=== PATIENT | male | born 1975 | race Caucasian/White ===

== ENCOUNTER 2017-02-28 03:22 | Emergency (ER) | payer SELFPAY ==
[~2017-02-28 03:22] MED LIST: MOTR200T PO
[2017-02-28 03:34] VITALS: BP 136/88; PULSE 120; RESP 22; TEMP 99.2; O2SAT 97
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
[2017-02-28 06:03] VITALS: BP 126/70; PULSE 99; RESP 20; O2SAT 100
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
[2017-02-28] MEDS ORDERED: LIDOCAINE HCL 1% PF 30 ML VIAL ONE (07:24)
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
== END 2017-02-28 08:45 | disposition home or self-care (01) ==
LOC: NEPC 03:22
DX: S09.90XA Unspecified injury of head, initial encounter (principal); S01.01XA Laceration without foreign body of scalp, initial encounter; S81.812A Laceration without foreign body, left lower leg, initial encounter; Z72.0 Tobacco use; Y04.2XXA Assault by strike against or bumped into by another person, initial encounter
CPT/HCPCS: 12002; 70450; 70486; 72125

== ENCOUNTER 2017-03-31 15:00 | Inpatient (IN) | payer SELFPAY ==
[~2017-03-31] VITALS: Ht 170.2 cm; Wt 82.3 kg
[2017-03-31] MEDS ORDERED: IOHEXOL 350 MG/ML 10 ML VIAL (for RAD DIAG) IVCONTRAST ONE (15:01)
[2017-03-31 15:08] VITALS: BP 112/74; PULSE 99; RESP 18; TEMP 97.5; O2SAT 97
--- NOTE | 2017-03-31 15:09 | PD ---
Physical Exam Date Seen by Provider: Mar 31, 2017 Time Seen by Provider: 15:07 Narrative 41-year-old white male presents to emergency department by EMS for evaluation of abdominal pain. Patient was in his normal state of health earlier today. He had gone to court today and developed abdominal discomfort. He states that the pain came so severe he fell to the ground. No fever chills. No nausea vomiting. Vital signs reviewed. Pt waiting for bed placement. [facility] Medical Record Reviewed: No Supervised Visit with AREN: Joseph Alvarez Mar 31, 2017 15:09
--- NOTE | 2017-03-31 15:09 | PD ---
Physical Exam Date Seen by Provider: Mar 31, 2017 Time Seen by Provider: 15:07 Narrative 41-year-old white male presents to emergency department by EMS for evaluation of abdominal pain. Patient was in his normal state of health earlier today. He had gone to court today and developed abdominal discomfort. He states that the pain came so severe he fell to the ground. No fever chills. No nausea vomiting. Vital signs reviewed. Pt waiting for bed placement. [facility] Medical Record Reviewed: No Supervised Visit with AREN: Joseph Alvarez Mar 31, 2017 15:09
--- NOTE | 2017-03-31 15:09 | PD ---
Physical Exam Date Seen by Provider: Mar 31, 2017 Time Seen by Provider: 15:07 Narrative 41-year-old white male presents to emergency department by EMS for evaluation of abdominal pain. Patient was in his normal state of health earlier today. He had gone to court today and developed abdominal discomfort. He states that the pain came so severe he fell to the ground. No fever chills. No nausea vomiting. Vital signs reviewed. Pt waiting for bed placement. [facility] Medical Record Reviewed: No Supervised Visit with AREN: Joseph Alvarez Mar 31, 2017 15:09
--- NOTE | 2017-03-31 16:32 | PD ---
HPI Chief Complaint: Abdominal Pain Time Seen by Provider: 16:10 Travel History International Travel<30 days: No Contact w/Intl Traveler<30days: No Traveled to known affect area: No History of Present Illness HPI Patient is a 41-year-old male who presents to emergency with complaints of abdominal pain. Patient reports that he felt nauseous this morning, but had to go to court. Reports that after court, he was not feeling any better. Reports diffuse abdominal pain with nausea and no vomiting. Denies diarrhea or constipation. Denies fever/chills. Patient denies dysuria/urgency/freq. PFSH Past Medical History Medical History: Denies Significant Hx Influenza Vaccination: No Past Surgical History Surgical History: No Previous Surgery Social History Alcohol Use: Yes (SOCIALLY PER PT) Tobacco Use: Yes (1/2 PPD) Substance Use: No Allergies-Medications (Allergen,Severity, Reaction): Coded Allergies: Penicillins (Verified Allergy, Severe, NAUSEA/VOMITING, 03/31/17) Reported Meds & Prescriptions Reported Meds & Active Scripts Active No Active Prescriptions or Reported Medications Review of Systems General / Constitutional: No: Fever, Chills Eyes: No: Visual changes HENT: No: Headaches Cardiovascular: No: Chest Pain or Discomfort Respiratory: No: Shortness of Breath Gastrointestinal: Positive: Nausea, Abdominal Pain, No: Vomiting, Diarrhea Genitourinary: No: Dysuria Musculoskeletal: No: Pain Skin: No Rash Neurologic: No: Weakness Psychiatric: No: Depression Endocrine: No: Polydipsia Hematologic/Lymphatic: No: Easy Bruising Physical Exam Narrative GENERAL: Moderate distress SKIN: Focused skin assessment warm/dry. HEAD: Atraumatic. Normocephalic. EYES: Pupils equal and round. No scleral icterus. No injection or drainage. ENT: No nasal bleeding or discharge. Mucous membranes pink and moist. NECK: Trachea midline. No JVD. CARDIOVASCULAR: Regular rate and rhythm. No murmur appreciated. RESPIRATORY: No accessory muscle use. Clear to auscultation. Breath sounds equal bilaterally. GASTROINTESTINAL: Abdomen soft, diffusely tender, nondistended. Hepatic and splenic margins not palpable. MUSCULOSKELETAL: No obvious deformities. No clubbing. No cyanosis. No edema. NEUROLOGICAL: Awake and alert. No obvious cranial nerve deficits. Motor grossly within normal limits. Normal speech. PSYCHIATRIC: Appropriate mood and affect; insight and judgment normal. Data Data Last Documented VS Vital Signs Date Time Temp Pulse Resp B/P (MAP) Pulse Ox O2 Delivery O2 Flow Rate FiO2 03/31/17 15:08 97.5 99 18 112/74 (87) 97 Room Air MDM Medical Decision Making Medical Screen Exam Complete: Yes Emergency Medical Condition: Yes Interpretation(s) Vital Signs Date Time Temp Pulse Resp B/P (MAP) Pulse Ox O2 Delivery O2 Flow Rate FiO2 03/31/17 15:08 97.5 99 18 112/74 (87) 97 Room Air Differential Diagnosis Gastroenteritis, gastritis, cholecystitis, appendicitis, anxiety reaction Narrative Course 41 year old male who presents to ER with c/o of diffuse abdominal pain with associated nausea. During the course of the patients emergency department visit, the patients history, examination, and differential diagnosis were reviewed with the patient. The patient was placed on a laboratory monitor with oximetry and frequent blood pressure monitoring. The patient had 20 gauge IV access obtained and blood work sent for analysis. Patient was signed out to oncoming physician at change of shift. Patient pending labs as well as ct study as well as re-evaluation. Scripts No Active Prescriptions or Reported Meds Morena Mata DO Mar 31, 2017 16:32
[2017-03-31] MEDS ORDERED: SODIUM CHLOR 0.9% 1000 ML INJ 1,000 ML IV SCH (16:44)
[2017-03-31] MEDS ORDERED: ONDANSETRON HCL 4 MG/2 ML VIAL IVP ONE (16:45)
[2017-03-31] MEDS ORDERED: SODIUM CHLORIDE 0.9% FLUSH 10 ML FLUSH IV FLUSH PRN (16:45)
[2017-03-31 17:12] LABS: AUTOMATED NEUTROPHIL # 13.5 TH/MM3 (1.8-7.7); BASOPHIL % 0.3 % (0.0-2.0); HEMOGLOBIN 15.1 GM/DL (13.0-17.0); LYMPH % 3.6 % (9.0-44.0); LYMPHOCYTE # 0.5 TH/MM3 (1.0-4.8); MEAN CELL VOLUME 89.3 FL (80.0-100.0); MEAN CORPUSCULAR HEMOGLOBIN 30.7 PG (27.0-34.0); MEAN CORPUSCULAR HGB CONC 34.4 % (32.0-36.0); MEAN PLATELET VOLUME 6.3 FL (7.0-11.0); MONO % 3.6 % (0.0-8.0); MONOCYTE # 0.5 TH/MM3 (0-0.9); NEUT % 92.5 % (16.0-70.0); PLATELET COUNT 299 TH/MM3 (150-450); RED BLOOD COUNT 4.93 MIL/MM3 (4.50-5.90); RED CELL DISTRIBUTION WIDTH 14.1 % (11.6-17.2); WHITE BLOOD COUNT 14.5 TH/MM3 (4.0-11.0)
[2017-03-31 17:23] LABS: INTERNATIONAL NORMALIZED RATIO 0.9 RATIO; PROTHROMBIN TIME - PATIENT 10.4 SEC (9.8-11.6)
[2017-03-31 17:59] LABS: ALBUMIN 3.7 GM/DL (3.4-5.0); ALT (GPT) 21 U/L (12-78); AST (GOT) 13 U/L (15-37); BICARBONATE 26.2 MEQ/L (21.0-32.0); BLOOD UREA NITROGEN 15 MG/DL (7-18); CALCIUM 8.6 MG/DL (8.5-10.1); CHLORIDE 102 MEQ/L (98-107); CREATININE 1.08 MG/DL (0.60-1.30); GLOMERULAR FILTRATION RATE 76 ML/MIN (>89); GLUCOSE,RANDOM 113 MG/DL (74-106); SODIUM (NA) 136 MEQ/L (136-145)
[2017-03-31 18:02] LABS: ALKALINE PHOSPHATASE 66 U/L (45-117); TOTAL BILIRUBIN ADULT 0.4 MG/DL (0.2-1.0); TOTAL PROTEIN 7.1 GM/DL (6.4-8.2)
[2017-03-31 18:33] LABS: BILIRUBIN, URINE NEG (NEG); BLOOD, URINE NEG (NEG); GLUCOSE,URINE NEG (NEG); KETONE, URINE NEG (NEG); NITRITE,URINE NEG (NEG); URINE COLOR YELLOW (YELLW/STRAW); URINE LEUKOCYTE ESTERASE NEG (NEG)
--- NOTE | 2017-03-31 18:45 | RADRPT ---
EXAM DATE/TIME: 03/31/2017 18:14 [facility] COMPARISON: No previous studies available for comparison. INDICATIONS : Diffuse abdomen pain IV CONTRAST: 76 cc Omnipaque 350 (iohexol) IV ORAL CONTRAST: No oral contrast ingested. RADIATION DOSE: 6.64 CTDIvol (mGy) MEDICAL HISTORY : None SURGICAL HISTORY : None. ENCOUNTER: Initial ACUITY: 1 day PAIN SCALE: 8/10 LOCATION: Abdomen TECHNIQUE: Volumetric scanning of the abdomen and pelvis was performed. Using automated exposure control and ad justment of the mA and/or kV according to patient size, radiation dose was kept as low as reasonably achievable to obtain optimal diagnostic quality images. DICOM format image data is available electro nically for review and comparison. FINDINGS: LOWER LUNGS: The visualized lower lungs are clear. LIVER: Homogeneous density without lesion. There is no dilation of the biliary tree. No calcified gallston es. SPLEEN: Normal size without lesion. PANCREAS: Within normal limits. KIDNEYS: Normal in size and shape. There is no mass, stone or hydronephrosis. ADRENAL GLANDS: Within normal limits. VASCULAR: There is no aortic aneurysm. BOWEL/MESENTERY: No oral contrast was given limiting the sensitivity the exam. There is apparent mild inflammatory naun nge in the pelvis with wispy soft tissue densities and small amount of fluid present. This is best se en on axial image #63. There is apparent tubular structure in the right lower quadrant which appears to connect to the cecum. This is ill-defined and measures up to approximately 1.3 cm in diameter. Thi s is most consistent with an abnormal appendix. There is no appendicolith identified. dilatation. The re is no free intraperitoneal air. ABDOMINAL WALL: Within normal limits. RETROPERITONEUM: There is no lymphadenopathy. BLADDER: No wall thickening or mass. REPRODUCTIVE: Within normal limits. INGUINAL: There is no lymphadenopathy or hernia. MUSCULOSKELETAL: Within normal limits for patient age. CONCLUSION: Findings most characteristic of early appendicitis. James Jones MD on March 31, 2017 at 18:37 Board Certified Radiologist. This report was verified electronically.
--- NOTE | 2017-03-31 18:52 | PD ---
Physical Exam Narrative GENERAL: SKIN: Warm and dry. HEAD: Atraumatic. Normocephalic. EYES: Pupils equal and round. No scleral icterus. No injection or drainage. ENT: No nasal bleeding or discharge. Mucous membranes pink and moist. NECK: Trachea midline. No JVD. CARDIOVASCULAR: Regular rate and rhythm. RESPIRATORY: No accessory muscle use. Clear to auscultation. Breath sounds equal bilaterally. GASTROINTESTINAL: Abdomen soft, mild rlq ttp, nondistended. MUSCULOSKELETAL: Extremities without clubbing, cyanosis, or edema. No obvious deformities. NEUROLOGICAL: Awake and alert. No obvious cranial nerve deficits. Motor grossly within normal limits. Five out of 5 muscle strength in the arms and legs. Normal speech. PSYCHIATRIC: Appropriate mood and affect; insight and judgment normal. Data Data Last Documented VS Vital Signs Date Time Temp Pulse Resp B/P (MAP) Pulse Ox O2 Delivery O2 Flow Rate FiO2 03/31/17 19:10 100.3 109 16 123/64 (83) 99 Room Air Orders Orders Complete Blood Count With Diff (03/31/17 16:44) Comprehensive Metabolic Panel (03/31/17 16:44) Prothrombin Time / Inr (Pt) (03/31/17 16:44) Act Partial Throm Time (Ptt) (03/31/17 16:44) Urinalysis - C+S If Indicated (03/31/17 16:44) Ct Abd/Pel W Iv Contrast(Rout) (03/31/17 16:44) Iv Access Insert/Monitor (03/31/17 16:44) Ecg Monitoring (03/31/17 16:44) NPO (03/31/17 16:44) Ondansetron Inj (Zofran Inj) (03/31/17 16:45) Sodium Chlor 0.9% 1000 Ml Inj (Ns 1000 M (03/31/17 16:44) Sodium Chloride 0.9% Flush (Ns Flush) (03/31/17 16:45) Iohexol 350 Inj (Omnipaque 350 Inj) (03/31/17 15:01) Levofloxacin 500 Mg Premix Inj (Levaquin (03/31/17 19:00) Admit Order (Ed Use Only) (03/31/17 19:17) Labs Laboratory Tests Test 03/31/17 16:50 10/31/17 18:10 White Blood Count 14.5 TH/MM3 Red Blood Count 4.93 MIL/MM3 Hemoglobin 15.1 GM/DL Hematocrit 44.0 % Mean Corpuscular Volume 89.3 FL Mean Corpuscular Hemoglobin 30.7 PG Mean Corpuscular Hemoglobin Concent 34.4 % Red Cell Distribution Width 14.1 % Platelet Count 299 TH/MM3 Mean Platelet Volume 6.3 FL Neutrophils (%) (Auto) 92.5 % Lymphocytes (%) (Auto) 3.6 % Monocytes (%) (Auto) 3.6 % Eosinophils (%) (Auto) 0.0 % Basophils (%) (Auto) 0.3 % Neutrophils # (Auto) 13.5 TH/MM3 Lymphocytes # (Auto) 0.5 TH/MM3 Monocytes # (Auto) 0.5 TH/MM3 Eosinophils # (Auto) 0.0 TH/MM3 Basophils # (Auto) 0.0 TH/MM3 CBC Comment DIFF FINAL Differential Comment Prothrombin Time 10.4 SEC Prothromb Time International Ratio 0.9 RATIO Activated Partial Thromboplast Time 24.9 SEC Blood Urea Nitrogen 15 MG/DL Creatinine 1.08 MG/DL Random Glucose 113 MG/DL Total Protein 7.1 GM/DL Albumin 3.7 GM/DL Calcium Level 8.6 MG/DL Alkaline Phosphatase 66 U/L Aspartate Amino Transf (AST/SGOT) 13 U/L Alanine Aminotransferase (ALT/SGPT) 21 U/L Total Bilirubin 0.4 MG/DL Sodium Level 136 MEQ/L Potassium Level 4.1 MEQ/L Chloride Level 102 MEQ/L Carbon Dioxide Level 26.2 MEQ/L Anion Gap 8 MEQ/L Estimat Glomerular Filtration Rate 76 ML/MIN Urine Color YELLOW Urine Turbidity CLEAR Urine pH 6.0 Urine Specific [place] 1.020 Urine Protein NEG mg/dL Urine Glucose (UA) NEG mg/dL Urine Ketones NEG mg/dL Urine Occult Blood NEG Urine Nitrite NEG Urine Bilirubin NEG Urine Urobilinogen LESS THAN 2.0 MG/DL Urine Leukocyte Esterase NEG Urine RBC LESS THAN 1 /hpf Urine WBC 1 /hpf Microscopic Urinalysis Comment CULT NOT INDICATED [facility] Medical Record Reviewed: Yes Supervised Visit with AREN: No Narrative Course 15k wbc and ct showed early appy, pt given levaquin and kept npo Physician Communication Physician Communication dr hendrix made aware at 1910 while he was in the OR, PLAN TO OPERATE BENJIE, AT THIS TIME HAS ANOTHER APPY CASE Diagnosis Primary Impression: Acute appendicitis Qualified Codes: K35.80 - Unspecified acute appendicitis Admitting Information Admitting Physician Requests: Admit Scripts No Active Prescriptions or Reported Meds Dirk Sanchez MD Mar 31, 2017 18:52
[2017-03-31] MEDS ORDERED: LEVOFLOXACIN 500 MG PREMIX INJ 100 ML IV ONE (19:00)
[2017-03-31 19:10] VITALS: BP 123/64; PULSE 109; RESP 16; TEMP 100.3; O2SAT 99
[2017-03-31] MEDS ORDERED: METRONIDAZOLE 500 MG/100 ML ISONTONIC SOLN IV ONE (20:45)
[2017-03-31] MEDS ORDERED: BUPIVACAINE/EPINEPHRINE 0.5% 50 ML VIAL ONE (21:13)
[2017-03-31] MEDS ORDERED: ACETAMINOPHEN 1000 MG/100 ML 100 ML IV ONE (21:43)
[2017-03-31] MEDS ORDERED: HYDROmorphone HCL PF 2 MG/ML VIAL ONE (21:46)
[2017-03-31] MEDS: D5-NS + KCL 20 MEQ INJ 1,000 ML IV SCH (22:58)
[2017-03-31] MEDS ORDERED: SODIUM CHLORIDE 0.9% FLUSH 5 ML FLUSH IVF PRN (23:00)
[2017-03-31] MEDS ORDERED: Post-op Orders (for Pharmacy) MISC XX ONE (23:00)
[2017-03-31] MEDS ORDERED: MORPHINE SULFATE 8 MG/ML INJ IV PUSH PRN (23:00)
[2017-03-31] MEDS ORDERED: ONDANSETRON HCL 4 MG/2 ML VIAL IV PUSH PRN (23:00)
[2017-03-31] MEDS ORDERED: NALOXONE HCL 0.4 MG/ML AMP IV PUSH PRN (23:00)
[2017-03-31] MEDS ORDERED: DO NOT ADM ANY ANTICOAGULANT DRUGS PRN (23:00)
[2017-03-31] MEDS ORDERED: diphenhydrAMINE HCL 50 MG/ML VIAL IVP PRN (23:00)
--- NOTE | 2017-03-31 23:48 | MH ---
cc: LORA FRIEDMAN M.D. DATE OF ADMISSION: 03/31/2017 ADMITTING DIAGNOSIS: Acute appendicitis. HISTORY OF PRESENT ILLNESS The patient is a 41 year-old male who presented with abdominal pain that began early this morning. The patient developed diffuse abdominal pain with nausea but no vomiting, had no diarrhea or constipation. No fever or chills. PAST MEDICAL HISTORY, PAST SURGICAL HISTORY: The patient has no significant medical history. No previous surgery. SOCIAL HISTORY: He drinks socially. Smokes one half-pack cigarettes per day. ALLERGIES: HE HAS ALLERGY TO PENICILLIN WHICH CAUSES NAUSEA AND VOMITING. MEDICATIONS: No active prescriptions. REVIEW OF SYSTEMS: Review of systems are negative for 10-point review of systems except for GI with nausea, abdominal pain. PHYSICAL EXAMINATION: Physical exam reveals a male who is very uncomfortable. Vitals: BP 112/74, pulse 99, respirations 18, temperature 97.5, 97% saturation on room air. HEENT: Sclerae anicteric. Pupils reactive. Chest: Clear to auscultation. Cardiac exam: Reveals regular rate and rhythm. Abdomen: Soft with diffuse tenderness throughout on all four quadrants. The patient has particularly severe tenderness in the right lower quadrant. There are no hernias noted. Pulses are intact. Neurologic: Exam is grossly nonfocal. LABORATORY VALUES: WBCs 14.5, BUN and creatinine 15 and 1.08. The liver function tests are low-normal. IMAGING STUDIES: Imaging demonstrates a mild inflammatory change in the pelvis with a small amount of fluid present. There is an ill-defined tubular structure in the right lower quadrant which is 1.3 cm in diameter. This is most consistent with an early appendicitis. There is no appendicolith or free air. ASSESSMENT Acute appendicitis without perforation. PLAN Laparoscopic appendectomy, possible open appendectomy. I have discussed with the patient risks of surgery including but not limited to bleeding, infection, need for drainage, adhesion formation, need for reoperation, as well as leakage with longer hospitalization. I have discussed remedies, consequences, alternatives, convalescence; he vocalizes understanding and agrees to proceed. MD MIGDALIA Cano/JESSICA /11:13 PM /11:40 PM
[2017-04-01] VITALS (7 sets, daily range): BP systolic 96–129; BP diastolic 60–78; PULSE 77–104; RESP 16–20; TEMP 96.1–98.6; O2SAT 96–99
--- NOTE | 2017-04-01 00:14 | MP ---
cc: LORA DAN M.D. DATE OF SURGERY: 03/31/2017 PROCEDURE Laparoscopic appendectomy. PREOPERATIVE DIAGNOSIS Acute appendicitis POSTOPERATIVE DIAGNOSIS Gangrenous appendicitis without perforation ANESTHESIA General endotracheal anesthesia. SURGEON Lucrecia Dan MD. ESTIMATED BLOOD LOSS 10 mL FLUIDS: 1700 mL Crystalloid COMPLICATIONS None. DRAINS: James drain x1. SPECIMEN: Appendix to pathology. PROCEDURE IN DETAIL The patient was taken to the operating room, placed on the operating room table in supine position. After adequate level of general endotracheal anesthesia was achieved the abdomen is prepped and draped in the usual fashion. Time-out was taken confirming the correct patient, site, and procedure to be performed. Skin and subcutaneous tissue was infiltrated with local anesthetic. An incision made in the umbilicus and carried through the fascia sharply. The peritoneal cavity was directly visualized. A 12 mm balloon trocar was inserted and the balloon inflated. The abdomen was insufflated. The patient placed in Trendelenburg position. A 5 mm 30 degree laparoscope was inserted and the abdomen visualized. There was purulent material located in the pelvis and in the right lower quadrant. Careful manipulation of the right lower quadrant revealed a gangrenous appendix. The mesoappendix was dissected off of this with the harmonic scalpel in a bloodless plane. A 0-PDS Endoloop was slipped over the appendix and cinched down at the base beyond all acute inflammatory process. The appendix was then divided 1 cm distal to this and placed into an EndoCatch device and removed via the umbilical port while observing via the right lower quadrant 5-mm trocar site. The patient had two 5 mm trocars placed with first in the right lower quadrant and the second the suprapubic region, after the laparoscope was inserted. Both of these entered the abdominal cavity under direct vision uneventfully. After removal of the appendix, the abdomen was copiously irrigated. A James drain was brought out via the right lower quadrant trocar site with the drain placed into the pelvis with the more proximal portion of the drain near the appendiceal stump. This was fixed to the skin with a 3-0 nylon suture. Insufflation was discontinued and the laparoscope and umbilical port were removed. The fascia was closed in the umbilicus with 0 Vicryl suture in both a simple interrupted and [id number] fashion. The remaining local anesthetic was injected into the trocar sites and the skin closed at the umbilical and the infraumbilical midline site with 4-0 Vicryl in an interrupted buried fashion. Both sites were dressed with Steri-Strips. A 4x4 was applied around the drain. The patient was extubated and taken back to the recovery room in stable condition. He tolerated procedure well. MD MIGDALIA Cano/JESSICA /11:16 PM /12:05 AM
[2017-04-01] MEDS: D5-NS + KCL 20 MEQ INJ 1,000 ML IV SCH ×4 (00:15→23:29)
[2017-04-01] MEDS: ACETAMINOPHEN/HYDROcodone 325 MG/5 MG TAB PO PRN ×5 (01:06→21:08)
[2017-04-01] MEDS: metroNIDAZOLE 500 MG INJ 100 ML IV SCH ×4 (02:50→21:01)
[2017-04-01] MEDS: CIPROFLOXACIN 400 MG PREMIX 200 ML IV SCH ×2 (06:11→18:38)
[2017-04-01 07:18] LABS: AUTOMATED NEUTROPHIL # 13.2 TH/MM3 (1.8-7.7); BASOPHIL % 0.1 % (0.0-2.0); HEMATOCRIT 37.6 % (39.0-51.0); HEMOGLOBIN 12.7 GM/DL (13.0-17.0); LYMPH % 5.4 % (9.0-44.0); LYMPHOCYTE # 0.8 TH/MM3 (1.0-4.8); MEAN CELL VOLUME 89.8 FL (80.0-100.0); MEAN CORPUSCULAR HEMOGLOBIN 30.4 PG (27.0-34.0); MEAN CORPUSCULAR HGB CONC 33.9 % (32.0-36.0); MEAN PLATELET VOLUME 6.4 FL (7.0-11.0); MONO % 3.3 % (0.0-8.0); MONOCYTE # 0.5 TH/MM3 (0-0.9); NEUT % 91.2 % (16.0-70.0); PLATELET COUNT 238 TH/MM3 (150-450); RED BLOOD COUNT 4.18 MIL/MM3 (4.50-5.90); RED CELL DISTRIBUTION WIDTH 14.2 % (11.6-17.2); WHITE BLOOD COUNT 14.4 TH/MM3 (4.0-11.0)
[2017-04-01] MEDS: SODIUM CHLORIDE 0.9% FLUSH 5 ML FLUSH IVF SCH ×2 (09:00→21:00)
[2017-04-01] MEDS ORDERED: PANTOPRAZOLE SOD 40 MG DELAYED RELEASE TAB PO SCH (11:45)
--- NOTE | 2017-04-01 11:45 | HHI.PR ---
Subjective Subjective Notes Resting in bed No issues overnight Objective Vitals/I&O Vital Signs Date Time Temp Pulse Resp B/P (MAP) Pulse Ox O2 Delivery O2 Flow Rate FiO2 04/01/17 09:50 98 21 04/01/17 08:50 97.5 83 16 96/60 (72) 04/01/17 00:45 Nasal Cannula 2.00 Labs Laboratory Tests Test 03/31/17 16:50 03/31/17 18:10 04/01/17 06:40 White Blood Count 14.5 14.4 Red Blood Count 4.93 4.18 Hemoglobin 15.1 12.7 Hematocrit 44.0 37.6 Mean Corpuscular Volume 89.3 89.8 Mean Corpuscular Hemoglobin 30.7 30.4 Mean Corpuscular Hemoglobin Concent 34.4 33.9 Red Cell Distribution Width 14.1 14.2 Platelet Count 299 238 Mean Platelet Volume 6.3 6.4 Neutrophils (%) (Auto) 92.5 91.2 Lymphocytes (%) (Auto) 3.6 5.4 Monocytes (%) (Auto) 3.6 3.3 Eosinophils (%) (Auto) 0.0 0.0 Basophils (%) (Auto) 0.3 0.1 Neutrophils # (Auto) 13.5 13.2 Lymphocytes # (Auto) 0.5 0.8 Monocytes # (Auto) 0.5 0.5 Eosinophils # (Auto) 0.0 0.0 Basophils # (Auto) 0.0 0.0 CBC Comment DIFF FINAL DIFF FINAL Differential Comment Prothrombin Time 10.4 Prothromb Time International Ratio 0.9 Activated Partial Thromboplast Time 24.9 Blood Urea Nitrogen 15 Creatinine 1.08 Random Glucose 113 Total Protein 7.1 Albumin 3.7 Calcium Level 8.6 Alkaline Phosphatase 66 Aspartate Amino Transf (AST/SGOT) 13 Alanine Aminotransferase (ALT/SGPT) 21 Total Bilirubin 0.4 Sodium Level 136 Potassium Level 4.1 Chloride Level 102 Carbon Dioxide Level 26.2 Anion Gap 8 Estimat Glomerular Filtration Rate 76 Urine Color YELLOW Urine Turbidity CLEAR Urine pH 6.0 Urine Specific [place] 1.020 Urine Protein NEG Urine Glucose (UA) NEG Urine Ketones NEG Urine Occult Blood NEG Urine Nitrite NEG Urine Bilirubin NEG Urine Urobilinogen LESS THAN 2.0 Urine Leukocyte Esterase NEG Urine RBC LESS THAN 1 Urine WBC 1 Microscopic Urinalysis Comment CULT NOT INDICATED Cardiovascular: Regular Lungs: Clear Abdomen: Other (non distended; lap sites c/d/i; BAILEY with serosanguineous drainage; minimal tenderness at insicions sites ) Extremities: No edema A/P Assessment and Plan 41 year old male POD1 lap appy; gangrenous -Advance to full liquids for lunch -Continue IVF -Continue IV antibiotics -Pain control -OOB and mobilize Attending Note - Dr. Dan Abdomen much less tender BAILEY output cloudy The exam, history, and the medical decision-making described in the above note were completed with the assistance of the mid-level provider. I reviewed and agree with the findings presented. I attest that I had a [id number] encounter with the patient on the same day, and personally performed and documented my assessment and findings in the medical record. Wendy Almanzar Apr 01, 2017 11:45 James Dan MD Apr 02, 2017 21:45
[2017-04-01] MEDS: PANTOPRAZOLE SOD 40 MG DELAYED RELEASE TAB PO SCH (16:45)
[2017-04-02] VITALS (7 sets, daily range): BP systolic 108–124; BP diastolic 64–95; PULSE 82–105; RESP 18–21; TEMP 97.4–100.2; O2SAT 94–99
[2017-04-02] MEDS: metroNIDAZOLE 500 MG INJ 100 ML IV SCH ×2 (01:48→08:49)
[2017-04-02] MEDS: D5-NS + KCL 20 MEQ INJ 1,000 ML IV SCH (01:48)
[2017-04-02] MEDS: ACETAMINOPHEN/HYDROcodone 325 MG/5 MG TAB PO PRN ×5 (03:49→23:05)
[2017-04-02] MEDS: CIPROFLOXACIN 400 MG PREMIX 200 ML IV SCH (06:21)
[2017-04-02] MEDS: PANTOPRAZOLE SOD 40 MG DELAYED RELEASE TAB PO SCH (08:50)
[2017-04-02] MEDS: SODIUM CHLORIDE 0.9% FLUSH 5 ML FLUSH IVF SCH ×2 (08:52→20:15)
[2017-04-02] MEDS ORDERED: CIPR-9 PO (10:42)
[2017-04-02] MEDS ORDERED: METR-1 PO (10:42)
[2017-04-02] MEDS ORDERED: SIMETHICONE 80 MG CHEWABLE TAB CHEW PRN (10:45)
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
[2017-04-02] MEDS: metroNIDAZOLE 500 MG TAB PO SCH ×2 (13:52→20:15)
[2017-04-02] MEDS: CIPROFLOXACIN 500 MG TAB PO SCH (20:15)
[2017-04-03 00:01] VITALS: BP 135/88; PULSE 95; RESP 18; TEMP 97.3; O2SAT 97
[2017-04-03 04:00] VITALS: BP 130/91; PULSE 89; RESP 17; TEMP 98.7; O2SAT 96
[2017-04-03] MEDS: ACETAMINOPHEN/HYDROcodone 325 MG/5 MG TAB PO PRN ×5 (04:17→20:03)
[2017-04-03] MEDS: metroNIDAZOLE 500 MG TAB PO SCH ×2 (04:18→12:54)
[2017-04-03 08:00] VITALS: BP 139/87; PULSE 80; RESP 18; TEMP 97.2; O2SAT 96
[2017-04-03] MEDS: CIPROFLOXACIN 500 MG TAB PO SCH ×2 (08:28→19:58)
[2017-04-03] MEDS: PANTOPRAZOLE SOD 40 MG DELAYED RELEASE TAB PO SCH (08:28)
[2017-04-03] MEDS: SODIUM CHLORIDE 0.9% FLUSH 5 ML FLUSH IVF SCH ×2 (08:31→19:59)
[2017-04-03 11:46] LABS: AUTOMATED NEUTROPHIL # 4.1 TH/MM3 (1.8-7.7); BASOPHIL % 0.5 % (0.0-2.0); EOSINOPHIL # 0.2 TH/MM3 (0-0.4); HEMATOCRIT 41.6 % (39.0-51.0); LYMPH % 22.1 % (9.0-44.0); LYMPHOCYTE # 1.3 TH/MM3 (1.0-4.8); MEAN CELL VOLUME 90.7 FL (80.0-100.0); MEAN CORPUSCULAR HEMOGLOBIN 30.4 PG (27.0-34.0); MEAN CORPUSCULAR HGB CONC 33.5 % (32.0-36.0); MONO % 6.3 % (0.0-8.0); MONOCYTE # 0.4 TH/MM3 (0-0.9); NEUT % 68.1 % (16.0-70.0); PLATELET COUNT 255 TH/MM3 (150-450); RED BLOOD COUNT 4.59 MIL/MM3 (4.50-5.90); RED CELL DISTRIBUTION WIDTH 14.1 % (11.6-17.2)
[2017-04-03 12:00] VITALS: BP 136/84; PULSE 93; RESP 18; TEMP 97.8; O2SAT 96
--- NOTE | 2017-04-03 13:33 | HHI.PR ---
Subjective Subjective Notes Still feeling sluggish Eating/drinking okay Objective Vitals/I&O Vital Signs Date Time Temp Pulse Resp B/P (MAP) Pulse Ox O2 Delivery O2 Flow Rate FiO2 04/03/17 12:00 97.8 93 18 136/84 (101) 96 04/01/17 09:50 21 04/01/17 00:45 Nasal Cannula 2.00 Labs Laboratory Tests Test 04/03/17 11:23 White Blood Count 6.0 Red Blood Count 4.59 Hemoglobin 14.0 Hematocrit 41.6 Mean Corpuscular Volume 90.7 Mean Corpuscular Hemoglobin 30.4 Mean Corpuscular Hemoglobin Concent 33.5 Red Cell Distribution Width 14.1 Platelet Count 255 Mean Platelet Volume 6.0 Neutrophils (%) (Auto) 68.1 Lymphocytes (%) (Auto) 22.1 Monocytes (%) (Auto) 6.3 Eosinophils (%) (Auto) 3.0 Basophils (%) (Auto) 0.5 Neutrophils # (Auto) 4.1 Lymphocytes # (Auto) 1.3 Monocytes # (Auto) 0.4 Eosinophils # (Auto) 0.2 Basophils # (Auto) 0.0 CBC Comment DIFF FINAL Differential Comment Cardiovascular: Regular Lungs: Clear Abdomen: Non-distended, Other (minimal tenderness with palpation; lap sites c/d /i; BAILEY with SS drainage ) Extremities: No edema A/P Assessment and Plan 41 year old male POD3 lap appy; gangrenous -Regular diet -Continue PO antibiotics -DC BAILEY drain -Pain control -WBC normal today -OOB and mobilize -Likely DC tomorrow Wendy Almanzar Apr 03, 2017 13:33
[2017-04-03 16:00] VITALS: BP 139/84; PULSE 94; RESP 18; TEMP 97.7; O2SAT 97
[2017-04-03] MEDS ORDERED: HYDR-3366 PO (18:09)
== END 2017-04-03 19:35 | disposition home or self-care (01) | DRG 343 ==
LOC: NEPD 15:00 → NEDA 19:19 → N06A 04-01 00:34
PROVIDERS: ADMIT Surgery Trauma Surgery; ATTEND Surgery Trauma Surgery
PROC: 0DTJ4ZZ Resection of Appendix, Percutaneous Endoscopic Approach (ICD-10-PCS; principal; 2017-03-31 21:45)
DX: K35.89 Other acute appendicitis (principal); F17.210 Nicotine dependence, cigarettes, uncomplicated; W19.XXXA Unspecified fall, initial encounter; S01.01XD Laceration without foreign body of scalp, subsequent encounter; Z88.0 Allergy status to penicillin
CPT/HCPCS: 74177; 80053; 81001; 85025; 85610; 85730; 88304; 94150; 96361; 96365; 96375; J0131; J0744; J1170; J1956; J2405; J3480; J7030; Q9967